=== PATIENT | male | born 1950 | race African-American/Black ===

== ENCOUNTER 2019-12-23 08:24 | Outpatient (CLI) | payer MEDICARE ==
--- NOTE | 2019-12-23 10:31 | CT ---
CT abdomen and pelvis with IV contrast HISTORY: Left abdomen mass. Prostate cancer. Hematuria. COMPARISON: 07/18/2015 MRI. FINDINGS: Minimal left pleural fluid.. A tiny cyst within the anterior segment right liver lobe is st able. Centered within the left retroperitoneum is a very large, lobular heterogeneous predominantly fluid d ensity mass with a thin lobular rim of peripheral enhancement measuring up to 17.7 cm length by 12.6 cm depth by 10.1 cm width. It dissects through the left posterior abdominal wall immediately inf erior to the left 12th rib, with significant lobular component extending into the left posterior paraspinal musculature. It thins the overlying left flank subcutaneous tissue. Within the upper half of the mass is an ill-defined heterogeneous slightly lower density internal focus that is 4.7 cm greatest diameter. Possibly some component of fat. The mass markedly compresses the lateral margin of the left psoas muscle and displaces the left kidne y anteriorly. The exophytic slightly complex cyst at the posterior margin of the left kidney from the prior studies is no longer visible. Along the superior apex of the spleen is a similar appearing lesion that is 5.5 cm width by 3.3 cm de pth by 2.4 cm in length. It contains a small pocket of gas within the nondependent portion. Medial extension of this abnormality contacts the lateral margin of the gastric fundus on coronal image 68 a nd 69 where oral contrast is seen at the far medial margin. It abuts the undersurface of the left hemidiaphragm. A very small, subtle isthmus of fluid connects this fluid collection to the larger ret roperitoneal fluid collection. No evidence of bowel obstruction or inflammation. There are degenerative changes of the lumbar spine and hips. IMPRESSION : Extremely large peripherally enhancing complex left retroperitoneal and intraperitoneal mass with mckenna arent thin connection to the lateral wall of the gastric fundus. While retroperitoneal sarcoma must be considered, the internal gas and other components of these lesions would favor a large area of nec rosis originating from a gastric fundus perforation, dissecting through the spleen, into the retroperitoneum, and through the left posterior upper abdominal wall. This could be a long-standing p rocess with necrosis of the involved tissue/fat. For further evaluation, endoscopy with particular attention to the lateral wall of the gastric fundus looking for a defect would be most appropriate. Surgical consultation also recommended. Eventually, percutaneous aspiration/biopsy could be considered. Very small left pleural effusion. Likely reactive. Findings were called to Dr. Jaquez at 1020 hours. Code CR.
[2019-12-23] MEDS ORDERED: Iopamidol 370 76% 100 ML VIAL ONE (15:16)
== END 2019-12-23 08:25 | disposition home or self-care (01) ==
LOC: CT 08:24
PROVIDERS: ATTEND Internal Medicine Medical Oncology
DX: C61 Malignant neoplasm of prostate (principal); R22.2 Localized swelling, mass and lump, trunk; R19.00 Intra-abdominal and pelvic swelling, mass and lump, unspecified site
CPT/HCPCS: 74177

== ENCOUNTER 2019-12-29 09:50 | Outpatient (CLI) | payer MEDICARE ==
--- NOTE | 2019-12-29 14:46 | MRI ---
MRI ABDOMEN WITH AND WITHOUT CONTRAST: Date: 12/29/2019 INDICATION: Retroperitoneal mass. COMPARISON: CT abdomen and pelvis dated 12/23/2019, MRI abdomen dated 07/18/2015, and a CT of the abdomen and pel vis with and without contrast dated 07/10/2015. TECHNIQUE: Multiplanar, multisequence MR images were obtained of the abdomen with and without contrast utilizing 15 mL MultiHance. FINDINGS: As seen on the comparison CT abnormality is a multicompartmental peripherally enhancing fluid collect ion that appears to extend from the posterior margin of the gastric fundus to a fluid collection over lying the spleen that then communicates with this larger fluid collection within the posterior left r etroperitoneum that displaces the left kidney anteriorly. There is no suspicious nodular or mass-like enhancement associated with the collection. The fluid collection does extend into the left psoas and dissects through the left posterolateral abdominal wall and into the subcutaneous tissues overlying the left paraspinal musculature. There are small bilateral renal cysts. There is a small right hepatic lobe cyst. Visualized left adre nal gland demonstrates stable mild fullness. Right adrenal gland is normal appearing. The pancreas ap pears within normal limits. No lymphadenopathy is evident. There is a small left pleural effusion. No bone marrow signal abnormality is evident. IMPRESSION: Large peripherally enhancing multicompartmental dissecting fluid collection extending from the gastri c fundus, suspicious for gastric fundal intraperitoneal leak with large area of fat necrosis within t he left retroperitoneum and aggressive dissection into the left retroperitoneal soft tissues through the left posterolateral chest wall. Correlation with endoscopy is recommended. There is no suspicious mass-like enhancement involving the fluid collection of the left posterior retroperitoneum or within the peritoneal cavity overlying the spleen. POS: [facility]
[2019-12-29] MEDS ORDERED: Magnevist 469MG/ML 20 ML VIAL ONE (14:47)
== END 2019-12-29 09:51 | disposition home or self-care (01) ==
LOC: MRI 09:50
PROVIDERS: ATTEND Internal Medicine Medical Oncology
DX: R19.00 Intra-abdominal and pelvic swelling, mass and lump, unspecified site (principal); D72.828 Other elevated white blood cell count; K31.89 Other diseases of stomach and duodenum
CPT/HCPCS: 74183; A9579

== ENCOUNTER 2021-03-18 13:04 | Outpatient (CLI) | payer MEDICARE | END 2021-03-18 13:05 | disposition home or self-care (01) | LOC: BICULT 13:04 | PROVIDERS: ATTEND Urology | DX: N28.1 Cyst of kidney, acquired (principal) | CPT/HCPCS: 76770 ==